=== PATIENT | male | born 1975 | race Two or more races ===

== ENCOUNTER 2023-07-23 20:29 | Inpatient (IN) | payer MEDICAID ==
[~2023-07-23] VITALS: Ht 170.2 cm; Wt 60.2 kg
[2023-07-23 21:11] LABS: Basophils # (auto) 0.1 10 ^3/uL (0-0.2); Basophils % (auto) 0.7 % (0.0-2.0); Eosinophils # (auto) 0.2 10 ^3/uL (0-0.8); Eosinophils % (auto) 2.5 % (0.0-7.0); Hematocrit 41.3 % (41.0-53.0); Hemoglobin 13.5 g/dL (13.5-17.5); Mean Corpuscular Hemoglobin 32.3 pg (28.0-32.0); Mean Corpuscular Hgb Conc. 32.7 g/dL (32.0-36.0); Mean Corpuscular Volume 98.7 fL (80.0-100.0); Monocytes # (auto) 0.8 10 ^3/uL (0-1.3); Monocytes % (auto) 9.4 % (0.0-12.0); Neutrophils # (auto) 4.5 10 ^3/uL (1.6-8.6); Neutrophils % (auto) 52.4 % (37.0-80.0); Nucleated Red Blood Cells % 0.2 %; Red Blood Cells 4.18 10^6/uL (4.5-5.90); Red Cell Distribution Width 15.2 % (11.8-14.3); White Blood Cell 8.6 10^3/uL (4.4-10.8)
[2023-07-23 21:28] LABS: Alanine Aminotransferase 77 U/L (7-40); Albumin 4.1 g/dL (3.2-4.8); Alkaline Phosphatase 103 U/L (46-116); Anion Gap 8 (5-15); Aspartate Aminotransferase 45 U/L (13-40); Bilirubin, Total 0.3 mg/dL (0.2-1.0); Blood Urea Nitrogen 23 mg/dL (9-23); Calcium 8.7 mg/dL (8.7-10.4); Carbon Dioxide 22 mmol/L (20-30); Chloride 110 mmol/L (98-107); Glucose 85 mg/dL (74-106); Magnesium 1.8 mg/dL (1.6-2.6); Potassium 4.9 mmol/L (3.5-5.1); Sodium 140 mmol/L (136-145); Total Protein 6.4 g/dL (5.7-8.2)
[2023-07-23 21:36] LABS: INR 1.19 (0.9-1.15); Partial Thromboplastin Time 28.2 SEC (24.5-34.5); Prothrombin Time 12.4 sec (9.3-11.8)
[2023-07-24] MEDS ORDERED: ENOXAPARIN SOD 40 MG/0.4 ML SYRINGE SC ONE (00:15)
[2023-07-24] MEDS ORDERED: HYDROcodone-ACET 10/325MG TAB PO ONE (00:15)
[2023-07-24] MEDS ORDERED: FUROSEMIDE 40 MG/4 ML VIAL IV ONE (00:15)
[2023-07-24] MEDS ORDERED: ONDANSETRON ODT 4 MG TAB PO ONE (00:15)
[2023-07-24] MEDS ORDERED: SODIUM CHLORIDE 0.9% 1,000 ML IV ONE (00:15)
[2023-07-24] MEDS ORDERED: ACETAMINOPHEN 325 MG TAB PO PRN (00:45)
[2023-07-24] MEDS ORDERED: NITROGLYCERIN 0.4 MG SL TAB SL PRN (00:45)
[2023-07-24] MEDS ORDERED: TEMAZEPAM 15 MG CAP PO PRN (00:45)
[2023-07-24] MEDS ORDERED: ONDANSETRON HCL 4 MG/2 ML VIAL IV PRN (00:45)
[2023-07-24] MEDS ORDERED: HYDROcodone-ACET 5/325MG TAB PO PRN (00:45)
[2023-07-24] MEDS ORDERED: MORPHINE SULFATE INJ 2 MG/ml SYRG IV PRN ×2 (00:45)
[2023-07-24] MEDS ORDERED: IOHEXOL 350 MG/ML 100ML IJ ONE (10:39)
[2023-07-24] MEDS: ZINC SULFATE 220mg CAP or TAB PO SCH (10:44)
[2023-07-24] MEDS: ASCORBIC ACID 500 MG TAB PO SCH ×2 (10:44→22:21)
[2023-07-24] MEDS: ENOXAPARIN SOD 40 MG/0.4 ML SYRINGE SC SCH (10:44)
[2023-07-24] MEDS: MULTIPLE VITAMIN TAB PO SCH (10:44)
[2023-07-24 10:54] LABS: Basophils # (auto) 0.1 10 ^3/uL (0-0.2); Basophils % (auto) 0.7 % (0.0-2.0); Eosinophils # (auto) 0.1 10 ^3/uL (0-0.8); Eosinophils % (auto) 1.1 % (0.0-7.0); Hematocrit 40.8 % (41.0-53.0); Hemoglobin 13.3 g/dL (13.5-17.5); Lymphocytes # (auto) 2.9 10 ^3/uL (0.4-5.4); Lymphocytes % (auto) 35.5 % (10.0-50.0); Mean Corpuscular Hemoglobin 32.3 pg (28.0-32.0); Mean Corpuscular Hgb Conc. 32.6 g/dL (32.0-36.0); Monocytes # (auto) 0.8 10 ^3/uL (0-1.3); Monocytes % (auto) 9.7 % (0.0-12.0); Neutrophils # (auto) 4.3 10 ^3/uL (1.6-8.6); Nucleated Red Blood Cells % 0.4 %; Red Blood Cells 4.12 10^6/uL (4.5-5.90); Red Cell Distribution Width 15.1 % (11.8-14.3)
[2023-07-24 10:56] LABS: Anion Gap 10 (5-15); Carbon Dioxide 21 mmol/L (20-30); Chloride 107 mmol/L (98-107); Potassium 4.9 mmol/L (3.5-5.1); Sodium 138 mmol/L (136-145)
[2023-07-24] MEDS: POTASSIUM CHL 20MEQ/100ML 100 ML IV SCH ×2 (10:59→11:00)
[2023-07-24] MEDS: FUROSEMIDE 40 MG/4 ML VIAL IV SCH ×2 (10:59→18:39)
[2023-07-24 11:02] LABS: BUN/Creatinine Ratio 14.6 (10.0-20.0); Blood Urea Nitrogen 18 mg/dL (9-23); Glucose 98 mg/dL (74-106)
[2023-07-24 17:34] VITALS: PULSE 94; RESP 16; O2SAT 96
[2023-07-24 17:47] VITALS: BP 109/78; PULSE 93; RESP 20; TEMP 98.1; O2SAT 100
[2023-07-24] MEDS ORDERED: INFLUENZA QUAD 2023-2024 0.5 ML SYRG IM ONE (18:30)
[2023-07-24] MEDS ORDERED: ATOR10TA52 PO (18:33)
[2023-07-24] MEDS ORDERED: METO1TAB9 PO (18:33)
[2023-07-24] MEDS ORDERED: IBUP-1455 PO (18:33)
[2023-07-24] MEDS ORDERED: ASPI-628 PO (18:33)
[2023-07-24 20:00] VITALS: PULSE 107; PULSE 91; RESP 18; O2SAT 100
[2023-07-24 22:00] VITALS: BP 104/79; PULSE 91; RESP 18; TEMP 98.2; O2SAT 100
[2023-07-25] VITALS (7 sets, daily range): BP systolic 101–116; BP diastolic 65–76; PULSE 56–97; RESP 18–20; TEMP 97.9–98.8; O2SAT 95–99
[2023-07-25] MEDS: FUROSEMIDE 40 MG/4 ML VIAL IV SCH ×2 (05:41→18:19)
[2023-07-25 06:19] LABS: Alanine Aminotransferase 89 U/L (7-40); Albumin 3.7 g/dL (3.2-4.8); Alkaline Phosphatase 89 U/L (46-116); Anion Gap 10 (5-15); Aspartate Aminotransferase 67 U/L (13-40); BUN/Creatinine Ratio 15.8 (10.0-20.0); Bilirubin, Total 0.7 mg/dL (0.2-1.0); Blood Urea Nitrogen 18 mg/dL (9-23); Calcium 8.5 mg/dL (8.7-10.4); Carbon Dioxide 21 mmol/L (20-30); Chloride 107 mmol/L (98-107); Glucose 94 mg/dL (74-106); Magnesium 1.8 mg/dL (1.6-2.6); Potassium 4.2 mmol/L (3.5-5.1); Sodium 138 mmol/L (136-145); Total Protein 6.1 g/dL (5.7-8.2)
[2023-07-25 07:02] LABS: Basophils # (auto) 0.1 10 ^3/uL (0-0.2); Eosinophils # (auto) 0.2 10 ^3/uL (0-0.8); Eosinophils % (auto) 1.9 % (0.0-7.0); Hemoglobin 13.5 g/dL (13.5-17.5); Lymphocytes # (auto) 2.8 10 ^3/uL (0.4-5.4); Lymphocytes % (auto) 33.7 % (10.0-50.0); Mean Corpuscular Hemoglobin 32.1 pg (28.0-32.0); Mean Corpuscular Hgb Conc. 32.9 g/dL (32.0-36.0); Mean Corpuscular Volume 97.7 fL (80.0-100.0); Monocytes # (auto) 0.8 10 ^3/uL (0-1.3); Monocytes % (auto) 9.9 % (0.0-12.0); Neutrophils # (auto) 4.4 10 ^3/uL (1.6-8.6); Neutrophils % (auto) 53.5 % (37.0-80.0); Nucleated Red Blood Cells % 0.6 %; Red Cell Distribution Width 15.2 % (11.8-14.3); White Blood Cell 8.2 10^3/uL (4.4-10.8)
[2023-07-25] MEDS: ZINC SULFATE 220mg CAP or TAB PO SCH (10:04)
[2023-07-25] MEDS: PANTOPRAZOLE 40 MG/10 ML VIAL INJ IV SCH (10:04)
[2023-07-25] MEDS: ASCORBIC ACID 500 MG TAB PO SCH ×2 (10:05→22:28)
[2023-07-25] MEDS: ENOXAPARIN SOD 40 MG/0.4 ML SYRINGE SC SCH (10:05)
[2023-07-25] MEDS: MULTIPLE VITAMIN TAB PO SCH (10:05)
[2023-07-25] MEDS ORDERED: METOPROLOL SUCCINATE XL 50 MG TAB PO ONE (13:15)
[2023-07-25 19:19] LABS: Amphetamine Screen, Urine Neg (NEGATIVE); Benzodiazephine Screen, Urine Neg (NEGATIVE)
[2023-07-25 19:20] LABS: Barbiturate Scree,Urine Neg (NEGATIVE); Cannabinoid Screen, Urine Neg (NEGATIVE); Cocaine Screen, Urine Neg (NEGATIVE); Opiate Scree,Urine Neg (NEGATIVE); Phencyclidine Screen, Urine Neg (NEGATIVE)
[2023-07-25] MEDS: SACUBITRIL-VALSARTAN 24mg/26mg TAB PO SCH (22:28)
[2023-07-26] VITALS (7 sets, daily range): BP systolic 91–136; BP diastolic 56–69; PULSE 77–97; RESP 14–22; TEMP 97.6–98.3; O2SAT 95–99
[2023-07-26 06:01] LABS: Alanine Aminotransferase 83 U/L (7-40); Alkaline Phosphatase 90 U/L (46-116); Anion Gap 11 (5-15); BUN/Creatinine Ratio 12.6 (10.0-20.0); Blood Urea Nitrogen 15 mg/dL (9-23); Calcium 8.5 mg/dL (8.7-10.4); Carbon Dioxide 25 mmol/L (20-30); Chloride 100 mmol/L (98-107); Glucose 179 mg/dL (74-106); Magnesium 1.6 mg/dL (1.6-2.6); Potassium 3.3 mmol/L (3.5-5.1); Sodium 136 mmol/L (136-145)
[2023-07-26 06:02] LABS: Albumin 3.7 g/dL (3.2-4.8); Aspartate Aminotransferase 49 U/L (13-40); Bilirubin, Total 0.6 mg/dL (0.2-1.0); Total Protein 6.1 g/dL (5.7-8.2)
[2023-07-26] MEDS: FUROSEMIDE 40 MG/4 ML VIAL IV SCH ×2 (06:15→17:56)
[2023-07-26] MEDS: ZINC SULFATE 220mg CAP or TAB PO SCH (10:21)
[2023-07-26] MEDS: MULTIPLE VITAMIN TAB PO SCH (10:22)
[2023-07-26] MEDS: METOPROLOL SUCCINATE XL 50 MG TAB PO SCH (10:22)
[2023-07-26] MEDS: ASCORBIC ACID 500 MG TAB PO SCH ×2 (10:22→22:19)
[2023-07-26] MEDS: SPIRONOLACTONE 25 MG TAB PO SCH (10:27)
[2023-07-26] MEDS: SACUBITRIL-VALSARTAN 24mg/26mg TAB PO SCH ×2 (10:27→22:00)
[2023-07-26] MEDS: ENOXAPARIN SOD 40 MG/0.4 ML SYRINGE SC SCH (10:28)
[2023-07-26] MEDS: PANTOPRAZOLE 40 MG/10 ML VIAL INJ IV SCH (10:28)
[2023-07-27] VITALS (7 sets, daily range): BP systolic 93–99; BP diastolic 54–64; PULSE 69–90; RESP 16–20; TEMP 98–98.7; O2SAT 92–99
[2023-07-27] MEDS: FUROSEMIDE 40 MG/4 ML VIAL IV SCH ×2 (05:53→18:00)
[2023-07-27] MEDS: SACUBITRIL-VALSARTAN 24mg/26mg TAB PO SCH ×2 (10:19→21:29)
[2023-07-27] MEDS: ASCORBIC ACID 500 MG TAB PO SCH ×2 (10:20→21:29)
[2023-07-27] MEDS: ZINC SULFATE 220mg CAP or TAB PO SCH (10:20)
[2023-07-27] MEDS: SPIRONOLACTONE 25 MG TAB PO SCH (10:20)
[2023-07-27] MEDS: MULTIPLE VITAMIN TAB PO SCH (10:20)
[2023-07-27] MEDS: METOPROLOL SUCCINATE XL 50 MG TAB PO SCH (10:21)
[2023-07-27] MEDS: ENOXAPARIN SOD 40 MG/0.4 ML SYRINGE SC SCH (10:22)
[2023-07-27] MEDS: PANTOPRAZOLE 40 MG/10 ML VIAL INJ IV SCH (10:22)
[2023-07-27] MEDS ORDERED: POTASSIUM CHL 20 Meq TABLET PO ONE (20:00)
[2023-07-28] VITALS (7 sets, daily range): BP systolic 90–102; BP diastolic 55–75; PULSE 70–91; RESP 16–18; TEMP 97.8–98.6; O2SAT 94–98
[2023-07-28] MEDS: FUROSEMIDE 40 MG/4 ML VIAL IV SCH ×2 (06:00→17:51)
[2023-07-28] MEDS: EMPAGLIFLOZIN 10 MG TAB PO SCH (06:50)
[2023-07-28 08:16] LABS: Anion Gap 6 (5-15); Carbon Dioxide 26 mmol/L (20-30); Chloride 106 mmol/L (98-107); Potassium 4.6 mmol/L (3.5-5.1); Sodium 138 mmol/L (136-145)
[2023-07-28 08:17] LABS: Calcium 8.8 mg/dL (8.5-10.1)
[2023-07-28 08:21] LABS: Glucose 94 mg/dL (74-106)
[2023-07-28 08:22] LABS: BUN/Creatinine Ratio 13.1 (10.0-20.0); Blood Urea Nitrogen 13 mg/dL (9-23)
[2023-07-28] MEDS: SPIRONOLACTONE 25 MG TAB PO SCH (09:47)
[2023-07-28] MEDS: ENOXAPARIN SOD 40 MG/0.4 ML SYRINGE SC SCH (09:47)
[2023-07-28] MEDS: PANTOPRAZOLE 40 MG/10 ML VIAL INJ IV SCH (09:47)
[2023-07-28] MEDS: ASCORBIC ACID 500 MG TAB PO SCH ×2 (09:48→22:57)
[2023-07-28] MEDS: ZINC SULFATE 220mg CAP or TAB PO SCH (09:48)
[2023-07-28] MEDS: MULTIPLE VITAMIN TAB PO SCH (09:48)
[2023-07-28] MEDS: SACUBITRIL-VALSARTAN 24mg/26mg TAB PO SCH ×2 (09:49→22:57)
[2023-07-28] MEDS: METOPROLOL SUCCINATE XL 50 MG TAB PO SCH (09:49)
[2023-07-28] MEDS ORDERED: FURO1TAB31 PO (12:10)
[2023-07-28] MEDS ORDERED: METO-6 PO (12:10)
[2023-07-28] MEDS ORDERED: SACU1TAB PO (12:10)
[2023-07-28] MEDS ORDERED: SPIR25TA PO (12:10)
[2023-07-29] VITALS (7 sets, daily range): BP systolic 90–98; BP diastolic 59–74; PULSE 52–97; RESP 15–18; TEMP 98–98.2; O2SAT 92–99
[2023-07-29] MEDS: EMPAGLIFLOZIN 10 MG TAB PO SCH (06:56)
[2023-07-29] MEDS: FUROSEMIDE 40 MG/4 ML VIAL IV SCH ×2 (06:57→18:07)
[2023-07-29] MEDS: MULTIPLE VITAMIN TAB PO SCH (10:34)
[2023-07-29] MEDS: SACUBITRIL-VALSARTAN 24mg/26mg TAB PO SCH ×2 (10:35→22:19)
[2023-07-29] MEDS: PANTOPRAZOLE 40 MG TAB PO SCH (10:35)
[2023-07-29] MEDS: METOPROLOL SUCCINATE XL 50 MG TAB PO SCH (10:35)
[2023-07-29] MEDS: SPIRONOLACTONE 25 MG TAB PO SCH (10:35)
[2023-07-29] MEDS: ZINC SULFATE 220mg CAP or TAB PO SCH (10:35)
[2023-07-29] MEDS: ASCORBIC ACID 500 MG TAB PO SCH ×2 (10:35→22:19)
[2023-07-29] MEDS: ENOXAPARIN SOD 40 MG/0.4 ML SYRINGE SC SCH (10:36)
[2023-07-30 05:00] VITALS: BP 101/59; PULSE 93; RESP 16; TEMP 98.2; O2SAT 99
[2023-07-30] MEDS: EMPAGLIFLOZIN 10 MG TAB PO SCH (06:42)
[2023-07-30] MEDS: FUROSEMIDE 40 MG/4 ML VIAL IV SCH ×2 (06:43→17:32)
[2023-07-30 08:00] VITALS: BP 90/62; PULSE 77; PULSE 84; RESP 18; TEMP 98.4; O2SAT 98
[2023-07-30] MEDS: ENOXAPARIN SOD 40 MG/0.4 ML SYRINGE SC SCH (08:37)
[2023-07-30] MEDS: SPIRONOLACTONE 25 MG TAB PO SCH (08:38)
[2023-07-30] MEDS: ASCORBIC ACID 500 MG TAB PO SCH (08:38)
[2023-07-30] MEDS: METOPROLOL SUCCINATE XL 50 MG TAB PO SCH (08:38)
[2023-07-30] MEDS: SACUBITRIL-VALSARTAN 24mg/26mg TAB PO SCH (08:38)
[2023-07-30] MEDS: ZINC SULFATE 220mg CAP or TAB PO SCH (08:38)
[2023-07-30] MEDS: MULTIPLE VITAMIN TAB PO SCH (08:38)
[2023-07-30] MEDS: PANTOPRAZOLE 40 MG TAB PO SCH (08:38)
[2023-07-30 08:49] VITALS: BP 90/62; PULSE 84; RESP 18; TEMP 98.4; O2SAT 98
[2023-07-30 12:44] VITALS: BP 98/63; PULSE 94; RESP 17; TEMP 98.5; O2SAT 99
[2023-07-30 15:17] VITALS: BP 98/63; PULSE 94; RESP 17; TEMP 98.5; O2SAT 99
[2023-07-30 16:51] VITALS: BP 90/61; PULSE 89; RESP 16; TEMP 98.5; O2SAT 96
== END 2023-07-30 19:48 | disposition home or self-care (01) | DRG 194 ==
LOC: ER 20:29 → TELE 07-24 00:39 → TELE-WESTW 07-24 17:46
PROVIDERS: ADMIT Nurse Practitioner; ATTEND Nurse Practitioner
DX: I11.0 Hypertensive heart disease with heart failure (principal); I27.20 Pulmonary hypertension, unspecified; I42.9 Cardiomyopathy, unspecified; I50.23 Acute on chronic systolic (congestive) heart failure; F17.210 Nicotine dependence, cigarettes, uncomplicated; I08.1 Rheumatic disorders of both mitral and tricuspid valves; Z79.84 Long term (current) use of oral hypoglycemic drugs; Z91.148 Patient's other noncompliance with medication regimen for other reason
CPT/HCPCS: 36415; 71045; 71275; 80048; 80053; 80307; 83735; 83880; 84443; 84484; 85025; 85379; 85610; 85730; 90686; 93005; 93306; 93970; C9113; G0378; J2405; Q0162